=== PATIENT | male | born 1945 | race Caucasian/White ===

== ENCOUNTER → 2016-09-14 | Outpatient (CLI) | payer MEDICARE, OTHER | END | disposition home or self-care (01) | LOC: GMAH 10:31 | PROVIDERS: ATTEND Family Medicine | DX: R79.9 Abnormal finding of blood chemistry, unspecified (principal) ==

== ENCOUNTER → 2017-08-14 | Outpatient (CLI) | payer MEDICARE, OTHER | LOC: GMAH 10:53 | PROVIDERS: ATTEND Family Medicine | DX: I10 Essential (primary) hypertension (principal); Z12.5 Encounter for screening for malignant neoplasm of prostate | CPT/HCPCS: 84443; G0103 ==

== ENCOUNTER → 2017-12-14 | Outpatient (CLI) | payer MEDICARE, OTHER | LOC: LAB.O 12:52 | PROVIDERS: ATTEND Urology | DX: R97.20 Elevated prostate specific antigen [PSA] (principal) ==

== ENCOUNTER → 2018-03-01 | Outpatient (CLI) | payer MEDICARE, OTHER ==
--- NOTE | 2018-03-01 10:59 | MRI ---
Study: MRI of the Right Elbow. Indication: MEDIAL EPICONDYLITIS Technique: Multiplanar, multi sequence MRI of the right elbow was obtained without intravenous contrast. Comparison: None. Findings: High grade common flexor tendinosis noted with high-grade interstitial tearing of the tendon origin. Thickening of the ulnar collateral ligament proximally indicating prior sprain. Proximal common extensor tendinosis noted with high grade articular/interstitial tearing, near full-thickness. There are several millimetric ossifications along the deep margin of the common extensor tendon origin and measure up to 5 mm. Prior tear of the proximal margin radial collateral ligament suspected. Insertional biceps tendinosis. Brachialis and triceps tendon insertions intact. No acute fracture. Ulnar nerve intact. Tiny accessory anconeus epitrochlearis muscle noted. Tiny elbow effusion. Low-grade chondral thinning of both elbow compartments noted with tiny joint line osteophytes. Minimal subchondral cystic change anterior margin of the coronoid process indicating overlying grade 4 chondral loss. Impression: High-grade common flexor tendinosis with high-grade interstitial tearing. High-grade common extensor tendinosis with high-grade articular/interstitial tearing and multifocal ossifications along the undersurface of the tendon origin. Prior sprain proximal ulnar collateral ligament as well as prior full-thickness tear proximal radial collateral ligament. Mild elbow osteoarthritis. Insertional biceps tendinosis. Tiny accessory anconeus epitrochlearis muscle. Electronically signed by: David Vera MD 03/01/2018 10:58 AM REFUSE AND RECYCLING WORKER
== END ==
LOC: MRI 07:49
PROVIDERS: ATTEND Orthopaedic Surgery
DX: M77.01 Medial epicondylitis, right elbow (principal); S53.441A Ulnar collateral ligament sprain of right elbow, initial encounter; S53.431A Radial collateral ligament sprain of right elbow, initial encounter; M19.021 Primary osteoarthritis, right elbow; M75.21 Bicipital tendinitis, right shoulder

== ENCOUNTER → 2018-03-08 | Outpatient (CLI) | payer MEDICARE, OTHER | LOC: RESP 10:21 | PROVIDERS: ATTEND Orthopaedic Surgery | DX: Z01.818 Encounter for other preprocedural examination (principal) ==

== ENCOUNTER → 2018-03-21 | Day surgery (SDC) | payer MEDICARE, OTHER ==
--- NOTE | 2018-03-16 09:14 | HP ---
CHIEF COMPLAINT: Right elbow pain. HISTORY OF PRESENT ILLNESS: Mr. Wilson has a history of several years of pain that has been located on the medial epicondylar region of the right elbow. He has had multiple injections and unfortunately, this has failed to give him relief. Because of his failure of relief, he has requested operative intervention. After discussing the risks, benefits and alternatives to that, he has given informed consent for debridement. PAST SURGICAL HISTORY: 1. Hiatal hernia repair. 2. Inguinal hernia repair. MEDICATIONS: 1. Lisinopril. 2. Avodart. ALLERGIES: NO KNOWN DRUG ALLERGIES. CODE STATUS: Full code. IMMUNIZATIONS: Up to date. FAMILY HISTORY: None pertinent to today's complaint. SOCIAL HISTORY: The patient does not smoke or use any illicit drugs. He does drink on occasion. REVIEW OF SYSTEMS: Negative except as indicated in the History of Present Illness. PHYSICAL EXAMINATION: VITAL SIGNS: Blood pressure 126/81. Pulse 89. Height 6'1". Weight 204. MENTAL STATUS: The patient is awake, alert, and is able to give a good history and participate in the physical. The patient is oriented to person, place and time. SKIN: Normal tone and turgor. MUSCULOSKELETAL: He maintains full flexion and extension at the elbow. He has severe pain with palpation over the medial epicondylar region. Sensation is intact and it is warm and well perfused. He has full public information coordinator strength, but he has pain with resisted flexion at the wrist. He has no deformity and there is no significant crepitus. IMAGING: X-rays show no acute bony abnormality. MRI was done and does show evidence of medial epicondylitis. ASSESSMENT: 1. Medial epicondylitis, failed conservative measures. PLAN: The plan at this point is for debridement of the medial epicondylar area with the common flexor tendon. We have discussed the risks, benefits, and alternatives to that and the patient has given informed consent. #[id number] [facility]
[~2018-03-21] MED LIST: BUPIVACAINE 0.5% 30 ML VIAL INJ ONE; BUPIVACAINE LIPOSOME 13.3 MG/ML VIAL INJ ONE; DEXAMETHASONE INJ 10 MG/ML VIAL ONE; ELECTROLYTE-A 1,000 ML IVS ONE; KETOROLAC TROMETHAMINE INJ 30 MG/ML VIAL ONE; LACTATED RINGERS 1,000 ML ONE; LIDOCAINE 1% 10 ML VIAL INJ ONE; METOCLOPRAMIDE HCL INJ 10 MG/2 ML VIAL ONE; MIDAZOLAM INJ 2 MG/2 ML VIAL ONE; MIDAZOLAM INJ 5 MG/5 ML VIAL ONE; PROPOFOL 200 MG/20 ML VIAL IV ONE; SODIUM CHL 0.9% 100ML MINI-BAG 100 ML IVPB ONE; ceFAZolin SODIUM 1 GM VIAL ONE; ePHEDrine SULF 50 MG/ML ONE; fentaNYL CITRATE INJ 50 MCG/ML AMP ONE; raNITIdine HCL INJ 25 MG/ML VIAL ONE
[2018-03-21] MEDS: ceFAZolin SODIUM 1 GM VIAL ONE ×2 (12:09→12:23)
[2018-03-21] MEDS: VANCOMYCIN HCL INJ 1,000 MG VIAL IVPB ONE ×2 (12:09→12:23)
[2018-03-21 14:04] VITALS: BP 132/78; TEMP 97.2; O2SAT 99
--- NOTE | 2018-03-22 09:26 | OP ---
DATE OF PROCEDURE: 03/21/18 PREOPERATIVE DIAGNOSIS: 1. Medial epicondylitis. POSTOPERATIVE DIAGNOSIS: 1. Medial epicondylitis. PROCEDURE: 1. Debridement of common flexor tendon. SURGEON: Bradley Becerra MD. ELEMENTARY SUBSTITUTE TEACHER: Maurice Balderas CST, SA-C. ANESTHESIA: General anesthesia. COMPLICATIONS: None. FINDINGS: Degenerative appearing tendinis tissue at the origin of the common flexor tendon. INDICATION: Mr. Wilson has a very long history of issues associated with medial epicondylitis. He has had multiple injections as well as other conservative measures, however, has failed to gain relief. Because of his ongoing symptoms, he has requested operative intervention. After discussing the risks, benefits and alternatives to the aforementioned procedure, he has given informed consent. PROCEDURE: The patient was brought to the Operating Room and placed in supine position. General anesthesia was induced and the patient's arm was sterilely prepped and draped. An incision was made directly overlying the medial epicondyle extending slightly distally over the common flexor mass. Dissection was carried down to the common flexor tendon. The fascia was split and the common flexor tendon was identified. There was obviously pathologic disease in that area. The pathologic appearing portions of the tendon were removed. It was fully debrided down to the medial epicondylar bone. Following that, the wound was very thoroughly irrigated. The muscle belly was reapproximated and the wound was closed with a combination of running and interrupted subcutaneous stitches. Sterile dressings were placed. The patient was awoken from anesthesia and taken to Recovery. POSTOPERATIVE PLAN: He will followup with us in 2 days. We are going to limit his lifting and gold activities until he makes a full recovery. #[id number] [facility]
== END ==
LOC: AMB 05:30
PROVIDERS: ATTEND Orthopaedic Surgery
DX: M77.01 Medial epicondylitis, right elbow (principal); I10 Essential (primary) hypertension; J45.909 Unspecified asthma, uncomplicated; Z79.899 Other long term (current) drug therapy
CPT/HCPCS: 01710; 0232T; 24076; 80307; 88305; J0690; J1100; J1885; J2250; J2765; J2780; J3010; J3370; J3490; J7050; J7120

== ENCOUNTER → 2018-04-04 | Outpatient (CLI) | payer MEDICARE, OTHER ==
--- NOTE | 2018-04-04 15:23 | CT ---
EXAM DESCRIPTION: Abdoment/Pelvis w/o Contrast: Computed Tomography. CLINICAL HISTORY: 73 years Male N18.4. Left flank pain. Chronic kidney disease. COMPARISON: CT scan of the abdomen and pelvis without IV contrast 04/25/2006. TECHNIQUE: Spiral-axial scans 2.5 x 2.5 mm intervals through the abdomen and pelvis without oral or IV contrast. Coronal and sagittal 2.0 mm reconstructions. Total Exam DLP: 539.02 mGy-cm. This exam was performed according to our departmental CT dose-optimization program which includes automated exposure control, adjustment of the mA and/or kV according to patient size and/or use of iterative reconstruction technique; to reduce radiation dose to as low as reasonably achievable (ALARA). FINDINGS: Kidneys and Ureters: 2 mm radiodense stone in the mid collecting system of the right kidney and a similar sized stone in the inferior collecting system with no hydronephrosis. No radiodense stones in the left kidney with no hydronephrosis. Multiple fluid density cysts right kidney with the largest measuring 3.3 cm. These cysts are simple. Smaller simple cysts in the left kidney, at least 3 visualized largest 1.5 cm. Symmetric pararenal fascial thickening bilaterally. Bilateral ureters are unremarkable. Mesentery: Negative. Pelvic Organs: Prostate gland minimal impression on the base of the urinary bladder, measures 4.7 x 3.4 cm largest transverse dimension. No radiodense stones in the urinary bladder. Minimal wall thickening. No fluid in the anterior peritoneal reflection. Lung bases and pleura: Minimal scarring in the inferior lingula. Liver, stomach, spleen, and adrenal glands: Splenic calcification. Normal size. Adrenal glands unremarkable. Surgical clips around the stomach and gastroesophageal junction. Distal stomach and proximal duodenum slightly distended by intestinal gas. Pancreas, Gallbladder, and Ducts: Multiple radiodense stones in the gallbladder. Normal surrounding fatty density. Small periportal lymph nodes. Minimal patchy density in the pancreas. Normal surrounding fatty density. Duct not well seen. Aorta: Atherosclerotic calcification and minimal ectasia. Small Bowel: Minimal distention by gas with a few scattered air-fluid levels. Terminal Ileum/Cecum: TI negative cecum slightly distended by fecal material, normal caliber of the appendix. Normal surrounding fat. Colon: Proximal colon with moderate amount of stool. Diverticula in the rectosigmoid but no complications. Spine and Bony Pelvis: Spondylosis lower thoracic spine and minimal dextroscoliosis. Decreased bone density. No lytic or blastic lesions. Defect in the lateral subcapital left femoral neck indicative of femoral acetabular impingement. Abdominal Wall/Back Soft Tissues: Large left inguinal hernia containing fat but no bowel. IMPRESSION: 1. Small nonobstructing stones in the right kidney. One stone is new since the prior study. Multiple cysts bilaterally simple. No hydronephrosis bilaterally. Ureters are negative. 2. Diverticulosis rectosigmoid colon has progressed since the prior study. No inflammation changes. 3. Multiple surgeries in the region of the gastroesophageal junction and lesser curvature of the stomach again noted. 4. 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 Fatty left inguinal hernia has enlarged since the prior study but not containing bowel. Cholelithiasis of the gallbladder is stable. Electronically signed by: Maurice Thompson MD 04/04/2018 3:22 PM [facility]
== END ==
LOC: CT 10:28
PROVIDERS: ATTEND Internal Medicine Nephrology
DX: N18.4 Chronic kidney disease, stage 4 (severe) (principal)

== ENCOUNTER → 2018-09-20 | Outpatient (CLI) | payer MEDICARE, OTHER ==
--- NOTE | 2018-09-20 09:31 | RAD ---
Findings: Number of images: Two Location: Left hip No acute fracture or dislocation. No focal soft tissue swelling. Soft tissues of the pelvis are grossly unremarkable. Minimal left hip joint space narrowing. IMPRESSION: No acute osseous abnormality in the left hip. Electronically signed by: Tanner Olsen MD 09/20/2018 9:29 AM CDT
--- NOTE | 2018-09-20 09:31 | RAD ---
Findings: Number of images: One Location: Pelvis No acute fracture or dislocation. Moderate rectal stool volume. Soft tissues are unremarkable. Degenerative changes noted about the pelvis and lumbar spine. IMPRESSION: No acute osseous abnormality in the pelvis. Electronically signed by: Tanner Olsen MD 09/20/2018 9:28 AM CDT
== END ==
LOC: RAD 08:01
PROVIDERS: ATTEND Orthopaedic Surgery
DX: M25.552 Pain in left hip (principal)

== ENCOUNTER → 2018-11-23 | Outpatient (CLI) | payer MEDICARE, OTHER ==
--- NOTE | 2018-11-24 11:13 | MRI ---
EXAM DESCRIPTION: Lumbar Spine w/o Contrast : Magnetic Resonance Imaging. CLINICAL HISTORY: RADICULOPATHY LUMBAR REGION COMPARISON: Radiographs of the pelvis and left hip in September 2018. TECHNIQUE: Multiplanar, multiple standard sequences, non contrast MRI, lumbar spine. FINDINGS: L5-S1: The disc is well visualized on axial T2 series 501, image 3. Disc desiccation with disc space maintained. Hyperintense T2 annular fissure in the posterior bulging segment of the disc. Posterior elements unremarkable. Canal patent. Moderate right foraminal narrowing and mild to moderate left foraminal narrowing. L4-L5: Normal signal in the disc with disc space maintained. Posterior elements unremarkable. Canal patent. Mild to moderate bilateral foraminal narrowing. L3-L4: Minimal disc desiccation with disc space maintained. Bilateral posterior flavum ligament thickening. Facets are unremarkable. Bilateral mild foraminal narrowing more on the left. L2-L3: Minimal disc desiccation with disc space maintained. No bulging. Posterior ligaments minimally thickened. Canal and bilateral foramina are patent. L1-L2: Disc space maintained with minimal disc desiccation. Posterior elements unremarkable. Canal and foramina are patent. Conus terminates just above the disc space. T12-L1: Normal signal in the disc with disc space maintained. Minimal concave regions of the endplates. Posterior elements unremarkable. Canal and foramina are patent. No scoliosis. Paravertebral soft tissues 3.3 cm cyst projecting from the medial cortex of the right kidney abutting the right psoas muscle at the L2 level.. Distal cord normal signal and caliber. Normal marrow signal in the remaining vertebral bodies and the posterior elements. Vertebral bodies are not compressed at any level. IMPRESSION: 1. Minimal desiccation of the disc and minimal bulging L5-S1 with annular fissure but no significant disc bulging or herniation. 2. No significant canal narrowing or stenosis. Minimal foraminal narrowing at some levels but no stenosis. Ligament thickening at some levels but no significant facet disease. 3. 3.3 cm cyst projecting from the medial right renal cortex abutting the right psoas muscle at the L2 level. Electronically signed by: Maurice Thompson MD 11/24/2018 11:12 AM CDT
== END ==
LOC: MRI 08:29
PROVIDERS: ATTEND Orthopaedic Surgery
DX: M51.17 Intervertebral disc disorders with radiculopathy, lumbosacral region (principal); N28.1 Cyst of kidney, acquired

== ENCOUNTER 2018-12-06 09:59 | Emergency (ER) | payer MEDICARE, OTHER ==
[2018-12-06] MEDS ORDERED: MECLIZINE HCL 12.5 MG TAB PO ONE (10:23)
[2018-12-06] MEDS ORDERED: SODIUM CHLORIDE 0.9% 1000ML 1,000 ML IVS ONE (10:23)
--- NOTE | 2018-12-06 11:27 | ED.PDOC ---
History of Present Illness - General Chief Complaint: General Stated Complaint: dizziness and nasuea Time Seen by Provider: 12/06/18 10:22 Source: patient, RN notes reviewed, Vital Signs reviewed, family - - History of Present Illness Initial Comments: Pt presents with c/o dizziness (vertigo) x 3 days. Worse in the am, better at night. Worse with upright position, better lying recumbent. Pt had a similar episode of this 6 months ago and came here. It improved with ivf. +N/V. No cp/sob/diarrhea/blurry vision/CARRILLO/numbness, tingling or weakness. Severity: severe Improving Factors: other - laying flat Worsening Factors: other - standing upright Associated Symptoms: nausea/vomiting Allergies/Adverse Reactions: Allergies NO KNOWN ALLERGY Allergy (Verified 12/06/18 10:19) Home Medications: Ambulatory Orders Finasteride 1 tablet PO DAILY 08/05/14 Lisinopril/Hctz 20-12.5 mg [Zestoretic 20-12.5 mg] 1 tablet PO DAILY 08/05/14 Albuterol Inhaler [Ventolin Hfa Inhaler] 1 puff INH PRN PRN 03/16/18 Budesonide-Formoterol Fumarate [Symbicort] 1 aer IN PRN PRN 03/16/18 Calcium Carbonate-Cholecalcife [Calcium 1000 + D] 1 tab PO DAILY 03/16/18 Montelukast [Singulair] 10 mg PO PRN PRN 03/16/18 Kirvin-3 Fatty Acids [Fish Oil] 1 cap PO DAILY 03/16/18 Sildenafil Citrate [Viagra] 25 mg PO PRN 03/16/18 Doxazosin Mesylate 1 mg PO DAILY 12/06/18 Meclizine HCl [Meclizine 25] 25 mg PO Q6HRS 7 Days #28 tab 12/06/18 Review of Systems - Review of Systems Constitutional: States: no symptoms reported EENTM: States: no symptoms reported Respiratory: States: no symptoms reported Cardiology: States: no symptoms reported Gastrointestinal/Abdominal: States: no symptoms reported Genitourinary: States: no symptoms reported Musculoskeletal: States: no symptoms reported Skin: States: no symptoms reported Neurological: States: see HPI Endocrine: States: no symptoms reported Hematologic/Lymphatic: States: no symptoms reported Past Medical History (General) - Patient Medical History Hx Seizures: No Hx Stroke: No Hx Dementia: No Hx Asthma: Yes Hx of COPD: No Hx Cardiac Disorders: No Hx Congestive Heart Failure: No Hx Pacemaker: No Hx Hypertension: Yes Hx Thyroid Disease: No Hx Diabetes: No Hx Gastroesophageal Reflux: No Hx Renal Disease: No Hx Cancer: No Hx of HIV: No Hx Hepatitis C: No Hx MRSA: No - Vaccination History Hx Tetanus, Diphtheria Vaccination: No Hx Influenza Vaccination: No Hx Pneumococcal Vaccination: Yes - Social History Hx Tobacco Use: No Hx Chewing Tobacco Use: No Hx Alcohol Use: Yes - SOCIALLY Hx Substance Use: No Hx Substance Use Treatment: No Hx Depression: No Hx Physical Abuse: No Hx Emotional Abuse: No Hx Suspected Abuse: No - Female History Patient : No Family Medical History - Family History Father Family History: Unknown Living Status: Hx Family Hypertension: Yes Hx Family;Other: gout Physical Exam - Physical Exam General Appearance: Anxious, Ill Appearing, Restless, Well Developed, Well Nourished Eye Exam: bilateral normal Ears, Nose, Throat: hearing grossly normal, normal ENT inspection, normal pharynx Neck: non-tender, full range of motion, supple, normal inspection Respiratory: chest non-tender, lungs clear, normal breath sounds, no respiratory distress, no accessory muscle use Cardiovascular/Chest: normal peripheral pulses, regular rate, rhythm, no edema, no gallop, no JVD, no murmur, JVD Gastrointestinal/Abdominal: normal bowel sounds, non tender, soft, no organomegaly, no pulsatile mass Back Exam: normal inspection, no CVA tenderness, no vertebral tenderness Extremity: normal range of motion, non-tender, normal inspection Neurologic: roll bucker II-XII nml as tested, no motor/sensory deficits, alert, normal mood/affect, oriented x 3 Skin Exam: normal color, warm/dry Lymphatic: no adenopathy Progress - Progress Progress: 12/06/18 11:56 Pt's symtoms have much improved. Plan d/c home on Meclizine and f/u with pcp in a few days. d/w pt and and they voice understanding and agreement with poc. - Results/Orders Results/Orders: 12/06/18 11:38 EKG Assessment ONCE 12/06/18 11:45 EKG STAT Laboratory Results - last 24 hr 12/06/18 12/06/18 12/06/18 09:43 09:43 09:43 WBC 10.2 RBC 4.59 L Hgb 14.8 Hct 44.3 MCV 96.4 H MCH 32.3 H MCHC 33.5 RDW 13.5 Plt Count 226 MPV 9.9 Absolute Neuts (auto) 7.00 H Absolute Lymphs (auto) 1.80 Absolute Monos (auto) 0.50 Absolute Eos (auto) 0.70 H Absolute Basos (auto) 0.10 Neutrophils % 68.9 Lymphocytes % 18.0 L Monocytes % 5.2 Eosinophils % 7.0 H Basophils % 0.9 Sodium 140 Potassium 4.6 Chloride 107 Carbon Dioxide 24 Anion Gap 13.6 BUN 25 H Creatinine 1.57 H BUN/Creatinine Ratio 15.9 Random Glucose 125 H Serum Osmolality 285.3 Calcium 8.8 Total Bilirubin 0.7 AST 20 ALT 15 Alkaline Phosphatase 88 Troponin I < 0.02 Serum Total Protein 6.5 Albumin 3.7 Globulin 2.8 Albumin/Globulin Ratio 1.3 Lipase 34 Urine Color Urine Appearance Urine pH Ur Specific [place] Urine Protein Urine Glucose (UA) Urine Ketones Urine Blood Urine Nitrite Urine Bilirubin Urine Urobilinogen Ur Leukocyte Esterase Urine RBC Urine WBC Ur Epithelial Cells Urine Bacteria 12/06/18 11:30 WBC RBC Hgb Hct MCV MCH MCHC RDW Plt Count MPV Absolute Neuts (auto) Absolute Lymphs (auto) Absolute Monos (auto) Absolute Eos (auto) Absolute Basos (auto) Neutrophils % Lymphocytes % Monocytes % Eosinophils % Basophils % Sodium Potassium Chloride Carbon Dioxide Anion Gap BUN Creatinine BUN/Creatinine Ratio Random Glucose Serum Osmolality Calcium Total Bilirubin AST ALT Alkaline Phosphatase Troponin I Serum Total Protein Albumin Globulin Albumin/Globulin Ratio Lipase Urine Color Yellow Urine Appearance Clear Urine pH 5.5 Ur Specific [place] 1.020 Urine Protein Negative Urine Glucose (UA) Negative Urine Ketones Negative Urine Blood Trace-intact H Urine Nitrite Negative Urine Bilirubin Negative Urine Urobilinogen 0.2 Ur Leukocyte Esterase Negative Urine RBC 0-1 Urine WBC 0-1 Ur Epithelial Cells 0 Urine Bacteria 0 - EKG/XRAY/CT Comments: NSR@93bpm, LAD, no st-t wave changes, abnormal ekg. Departure - Departure Clinical Impression: Vertigo, Dehydration Time of Disposition: 11:57 Disposition: Discharge to Home or Self Care Condition: Good Departure Forms: ED Discharge - Pt. Copy, Patient Portal Self Enrollment Referrals: Javier Hollis MD [Primary Care Provider] - 1-5 Days Prescriptions: Meclizine HCl [Meclizine 25] 25 mg PO Q6HRS 7 Days #28 tab Home Medications: Ambulatory Orders Finasteride 1 tablet PO DAILY 08/05/14 Lisinopril/Hctz 20-12.5 mg [Zestoretic 20-12.5 mg] 1 tablet PO DAILY 08/05/14 Albuterol Inhaler [Ventolin Hfa Inhaler] 1 puff INH PRN PRN 03/16/18 Budesonide-Formoterol Fumarate [Symbicort] 1 aer IN PRN PRN 03/16/18 Calcium Carbonate-Cholecalcife [Calcium 1000 + D] 1 tab PO DAILY 03/16/18 Montelukast [Singulair] 10 mg PO PRN PRN 03/16/18 Kirvin-3 Fatty Acids [Fish Oil] 1 cap PO DAILY 03/16/18 Sildenafil Citrate [Viagra] 25 mg PO PRN 03/16/18 Doxazosin Mesylate 1 mg PO DAILY 12/06/18 Meclizine HCl [Meclizine 25] 25 mg PO Q6HRS 7 Days #28 tab 12/06/18
[2018-12-06 12:40] VITALS: BP 138/81; TEMP 96.1; O2SAT 97
== END 2018-12-06 12:25 | disposition home or self-care (01) ==
LOC: ER 09:59
DX: R42 Dizziness and giddiness (principal); E86.0 Dehydration; J45.909 Unspecified asthma, uncomplicated; I10 Essential (primary) hypertension; Z79.899 Other long term (current) drug therapy
CPT/HCPCS: 36415; 80053; 81001; 83690; 84484; 85025; 93005; J7030

== ENCOUNTER → 2019-10-22 | Outpatient (CLI) | payer MEDICARE, OTHER | LOC: GMA MATASK 10:45 | PROVIDERS: ATTEND Family Medicine | DX: N40.0 Benign prostatic hyperplasia without lower urinary tract symptoms (principal); I10 Essential (primary) hypertension ==

== ENCOUNTER → 2019-12-03 | Outpatient (CLI) | payer MEDICARE, OTHER | LOC: GMA MATASK 10:56 | PROVIDERS: ATTEND Family Medicine | DX: I10 Essential (primary) hypertension (principal) ==